=== PATIENT | male | born 1940 | race Caucasian/White ===

== ENCOUNTER 2017-04-21 20:54 | Inpatient (IN) | payer OTHER, MEDICARE ==
[~2017-04-21] VITALS: Ht 172.7 cm; Wt 80.0 kg
[~2017-04-21 20:54] MED LIST: APIX5TAB PO; CHOL1CAP6 PO; ESTE500T4 PO; FOLI1 PO; LACTATED RINGER'S 1000 ML INJ 1,000 ML IV ONE; LORTA5 PO; METO100T9 PO; PHENYLEPH/NS 1000 MCG/10 ML SYR IV ONE; PROPOFOL 200 MG/20 ML AMP IV ONE; TAB-TAB PO; Z.0.COMMODE-3:1; Z.0.WALKERFRONT; [UNRECOGNIZED DRUG - CODE] PO; ceFAZolin INJ 1,000 MG VIAL IV ONE; ePHEDrine/NS 25 MG/5 ML SYR IV ONE
[2017-04-21] MEDS ORDERED: SODIUM CHLORIDE 0.9% FLUSH 10 ML FLUSH IV FLUSH PRN ×2 (21:15→22:15)
[2017-04-21 21:23] LABS: AUTOMATED NEUTROPHIL # 15.4 TH/MM3 (1.8-7.7); BASOPHIL % 0.2 % (0.0-2.0); HEMO FLAGS DIFF FINAL; LYMPH % 4.4 % (9.0-44.0); LYMPHOCYTE # 0.7 TH/MM3 (1.0-4.8); MEAN CELL VOLUME 98.1 FL (80.0-100.0); MEAN CORPUSCULAR HEMOGLOBIN 33.1 PG (27.0-34.0); MEAN CORPUSCULAR HGB CONC 33.7 % (32.0-36.0); MONO % 2.3 % (0.0-8.0); NEUT % 93.1 % (16.0-70.0); PLATELET COUNT 204 TH/MM3 (150-450); RED BLOOD COUNT 4.38 MIL/MM3 (4.50-5.90); RED CELL DISTRIBUTION WIDTH 13.4 % (11.6-17.2); WHITE BLOOD COUNT 16.6 TH/MM3 (4.0-11.0)
[2017-04-21 21:30] VITALS: BP 197/89; PULSE 89; RESP 20; O2SAT 97
[2017-04-21 21:31] VITALS: BP 198/89; PULSE 92; RESP 24; TEMP 97.7; O2SAT 98
[2017-04-21 21:33] LABS: APTT (PATIENT) 23.8 SEC (24.3-30.1); PROTHROMBIN TIME - PATIENT 10.8 SEC (9.8-11.6)
[2017-04-21] MEDS ORDERED: KETAMINE HCL 500 MG/5 ML VIAL ONE (21:38)
[2017-04-21 21:42] VITALS: O2SAT 98
--- NOTE | 2017-04-21 21:42 | PD ---
HPI Chief Complaint: Bleeding Time Seen by Provider: 21:01 Travel History International Travel<30 days: No Contact w/Intl Traveler<30days: No Traveled to known affect area: No History of Present Illness HPI 76-year-old male who had a facelift procedure today by Dr. Becerra, brought in by ambulance from home for evaluation of neck pain, neck swelling, and difficulty breathing. The patient reports he feels as though there is something in his throat. States it is hard to breathe because of this. He denies being on any antiplatelets or anticoagulants. PFSH Past Medical History Cancer: Yes (PROSTATE, PRE SKIN CANCERS) Cardiovascular Problems: Yes (A FIB) Endocrine: No Gastrointestinal Disorders: No Genitourinary: Yes (WEARS PAD DURING DAY FOR SLIGHT INCONTINENCE) Hepatitis: No Hiatal Hernia: No Hypertension: Yes Immune Disorder: No Medical other: Yes (THORACIC AORTIC ANEURYSM ) Musculoskeletal: Yes (RIGHT HIP, RIGHT SHOULDER DISCOMFORT, MINIMAL LEFT SHOULDER DISCOMFORT) Neurologic: No Psychiatric: No Reproductive: No Respiratory: No Tetanus Vaccination: > 5 Years Influenza Vaccination: No Past Surgical History Abdominal Surgery: Yes (DOUBLE ABDOMINAL HERNIA REPAIR, LAPROSCOPIC SURGERY FOR BOWEL OBSTRUCTION) AICD: No Body Medical Devices: NONE Cardiac Surgery: No Ear Surgery: No Endocrine Surgery: No Eye Surgery: No Genitourinary Surgery: Yes (PROSTATE REMOVED, URETHRAL DILITATION) Joint Replacement: No Neurologic Surgery: No Oral Surgery: No Pacemaker: No Thoracic Surgery: No Other Surgery: Yes Social History Alcohol Use: Yes (i per night) Tobacco Use: No Substance Use: No Allergies-Medications (Allergen,Severity, Reaction): Coded Allergies: meperidine (Verified Allergy, Intermediate, 04/21/17) Sulfa (Sulfonamide Antibiotics) (Unverified Adverse Reaction, Severe, NAUSEA AND VOMITING, 03/22/17) Reported Meds & Prescriptions Reported Meds & Active Scripts Active [place] 5-325 mg (Hydrocodone-Acetaminophen 5-325 mg) 1 Tab 1-2 Tab PO Q4H PRN Walker Front Wheel (Walkerfront) Device 1 Unit Commode-3:1 Device 1 Unit Reported Metoprolol Succinate ER 100 mg (Metoprolol Succinate) 100 Mg Tab 100 Mg PO HS L-Arginine (Arginine) 1,000 Mg Tab 1,000 Mg PO DAILY Suzette-C (Bioflavonoid Products) 500 Mg Tab 1 Tab PO DAILY Multivitamin (Multivitamins) 1 Tab Tab 1 Tab PO DAILY Folate 1 Mg Tab (Folic Acid) 1 Mg Tab 1,600 Mcg PO DAILY Vitamin D-3 (Cholecalciferol) 1,000 Unit Tab 1,000 Unit PO DAILY Eliquis (Apixaban) 5 Mg Tab 5 Mg PO BID Review of Systems Except as stated in HPI: all other systems reviewed are Neg Physical Exam Narrative GENERAL: Well-developed, well-nourished, mild distress secondary to pain, discomfort, and dyspnea. SKIN: Focused skin assessment warm/dry. HEAD: Diffuse facial swelling and neck swelling. EYES: Pupils equal and round. No scleral icterus. No injection or drainage. ENT: Mucous membranes pink and moist. Slight stridor on exam with hoarseness of voice. NECK: Diffuse neck swelling with ecchymosis and firmness. Submandibular [place] as well as posterior radicular vin in place with slight bleeding at incision sites. There are 2 REJI drains, each behind the patient's ear bilaterally. The right REJI drain has 70 cc of blood. The left REJI drain has 20 cc of blood. CARDIOVASCULAR: Regular rate and rhythm. RESPIRATORY: No accessory muscle use. Clear to auscultation. Breath sounds equal bilaterally. GASTROINTESTINAL: Abdomen soft, non-tender, nondistended. MUSCULOSKELETAL: No obvious deformities. No clubbing. No cyanosis. No edema. NEUROLOGICAL: Awake and alert. No obvious cranial nerve deficits. Motor grossly within normal limits. Normal speech. PSYCHIATRIC: Appropriate mood and affect; insight and judgment normal. Data Data Last Documented VS Vital Signs Date Time Temp Pulse Resp B/P (MAP) Pulse Ox O2 Delivery O2 Flow Rate FiO2 04/21/17 21:30 89 20 197/89 (125) 97 Nasal Cannula 2.00 Orders Orders Complete Blood Count With Diff (04/21/17 21:07) Comprehensive Metabolic Panel (04/21/17 21:07) Prothrombin Time / Inr (Pt) (04/21/17 21:07) Act Partial Throm Time (Ptt) (04/21/17 21:07) Iv Access Insert/Monitor (04/21/17 21:07) Ecg Monitoring (04/21/17 21:07) Oximetry (04/21/17 21:07) Sodium Chloride 0.9% Flush (Ns Flush) (04/21/17 21:15) Admit Order (Ed Use Only) (04/21/17 21:31) Dexamethasone Inj (Decadron Inj) (04/21/17 21:45) Labs Laboratory Tests Test 04/21/17 21:10 White Blood Count 16.6 TH/MM3 Red Blood Count 4.38 MIL/MM3 Hemoglobin 14.5 GM/DL Hematocrit 43.0 % Mean Corpuscular Volume 98.1 FL Mean Corpuscular Hemoglobin 33.1 PG Mean Corpuscular Hemoglobin Concent 33.7 % Red Cell Distribution Width 13.4 % Platelet Count 204 TH/MM3 Mean Platelet Volume 8.5 FL Neutrophils (%) (Auto) 93.1 % Lymphocytes (%) (Auto) 4.4 % Monocytes (%) (Auto) 2.3 % Eosinophils (%) (Auto) 0.0 % Basophils (%) (Auto) 0.2 % Neutrophils # (Auto) 15.4 TH/MM3 Lymphocytes # (Auto) 0.7 TH/MM3 Monocytes # (Auto) 0.4 TH/MM3 Eosinophils # (Auto) 0.0 TH/MM3 Basophils # (Auto) 0.0 TH/MM3 CBC Comment DIFF FINAL Differential Comment Prothrombin Time 10.8 SEC Prothromb Time International Ratio 1.0 RATIO Activated Partial Thromboplast Time 23.8 SEC MDM Medical Decision Making Medical Screen Exam Complete: Yes Emergency Medical Condition: Yes Differential Diagnosis Postoperative hematoma, airway compromise Narrative Course Shortly after the patient arrived to the emergency department I was able to get in touch with the patient's surgeon Dr. Becerra who recommends that I remove the vin and subcutaneous sutures behind each of the patient's ears to help drain the hematoma. He is on his way to the hospital to take the patient back to the operating room to evacuate the large neck hematoma. Bilateral posterior radicular Vin were removed, and subcutaneous sutures were removed on the right side. Yankauer drain to suction was used to drain about 100 cc of blood. There was mild softening to the neck hematoma after this was performed. Senior Software Developer Dr. Domingo made aware of the patient has the patient will be admitted to the ICU after he is taken to the OR. Critical Care Narrative Aggregate critical care time was 35 minutes. Time to perform other separately billable procedures was not included in the critical care time. My time did not include minutes spent treating any other patients simultaneously or on activities that did not directly contribute to the patient's treatment. The services I provided to this patient were to treat and/or prevent clinically significant deterioration that could result in: , permanent disability, acute respiratory failure I provided critical care services requiring my management, as noted below: Chart data review, documentation time, medication orders and management, vital sign assessments/reviewing monitor data, ordering and reviewing lab tests, ordering and interpreting/reviewing x-rays and diagnostic studies, care of the patient and discussion of the patient with the admitting physicians. Diagnosis Primary Impression: Postoperative hematoma of skin following dermatologic procedure Admitting Information Admitting Physician Requests: Admit Kyle Castaneda MD Apr 21, 2017 21:42
[2017-04-21] MEDS ORDERED: DEXAMETHASONE SOD PHOS 20 MG/5 ML VIAL IV PUSH ONE (21:45)
[2017-04-21] MEDS ORDERED: BUPIVACAINE/EPINEPHRINE 0.5% 50 ML VIAL ONE (21:53)
[2017-04-21 22:02] LABS: ANION GAP 9 MEQ/L (5-15); AST (GOT) 25 U/L (15-37); BICARBONATE 22.9 MEQ/L (21.0-32.0); BLOOD UREA NITROGEN 22 MG/DL (7-18); CHLORIDE 108 MEQ/L (98-107); GLOMERULAR FILTRATION RATE 47 ML/MIN (>89); POTASSIUM 4.1 MEQ/L (3.5-5.1); SODIUM (NA) 140 MEQ/L (136-145)
[2017-04-21 22:03] LABS: ALT (GPT) 37 U/L (12-78)
[2017-04-21 22:05] LABS: ALKALINE PHOSPHATASE 78 U/L (45-117); TOTAL BILIRUBIN ADULT 0.5 MG/DL (0.2-1.0)
[2017-04-21] MEDS ORDERED: BISACODYL 10 MG SUPP RECTAL PRN (22:15)
[2017-04-21] MEDS ORDERED: PROPOFOL 1000 MG/100 ML INJ 100 ML IV PRN (22:15)
[2017-04-21] MEDS ORDERED: MAGNESIUM HYDROXIDE SUSP 30 ML CUP PO PRN (22:15)
[2017-04-21] MEDS ORDERED: MISCELLANEOUS NURSING INFORMATION XX SCH (22:15)
[2017-04-21] MEDS ORDERED: SENNOSIDES 8.6 MG TAB PO PRN (22:15)
[2017-04-21] MEDS ORDERED: CHLORHEXIDINE GLUCONATE 2 % 1 PACK (2 CLOTHS) TOP PRN (22:15)
[2017-04-21] MEDS ORDERED: ONDANSETRON HCL 4 MG/2 ML VIAL IV PUSH PRN (22:15)
[2017-04-21] MEDS ORDERED: RESP: ALBUTEROL 2.5 MG/3 ML NEB (PRN) INH (22:15)
[2017-04-21] MEDS ORDERED: LACTULOSE SYRUP 20 GM/30 ML CUP PO PRN (22:15)
[2017-04-21] MEDS ORDERED: HYDR25TA5 PO (22:25)
[2017-04-21] MEDS ORDERED: ALPR.25 PO (22:25)
[2017-04-21] MEDS ORDERED: ZOVI400T PO (22:25)
[2017-04-21] MEDS ORDERED: HYDR1SOL6 PO (22:25)
[2017-04-21] MEDS ORDERED: CEPH-460 PO (22:25)
[2017-04-21] MEDS ORDERED: ZOFR4TAB PO (22:25)
--- NOTE | 2017-04-21 22:26 | HHI.HP ---
[facility] Service Critical Care Medicine Primary Care Physician Unknown Admission Diagnosis postoperative hematoma Diagnosis: (1) Postoperative hematoma of skin following dermatologic procedure Diagnosis: Principal (2) Hypertension Diagnosis: Principal (3) Anticoagulant long-term use Diagnosis: Principal (4) Prostate cancer Diagnosis: Principal (5) Thoracic aortic aneurysm Diagnosis: Secondary (6) Osteoarthritis Diagnosis: Principal (7) Leukocytosis Diagnosis: Principal (8) Atrial fibrillation Diagnosis: Principal Chief Complaint: "I can't breathe". Swelling post facelift Travel History International Travel<30 Days: No Contact w/Intl Traveler <30 Da: No Traveled to Known Affected Are: No History of Present Illness This is a 76-year-old male. Date of admission 04/21/2017. Past medical history includes heart appearing, atrial fibrillation, osteoarthritis, thoracic aneurysm, prostate cancer. He is on chronic Apixabam. He presents to [facility] today after receiving a facelift with Dr. Barroso.. He is noticing increasing difficulty breathing, complaining of neck pain and diffuse facial swelling. His right REJI at 70 cc sanguinous output. Left REJI 20 cc sanguinous output. Plastics was notified. Recommend removing his zabrina infection blood to relieve pressure. This was done on the right side. Patient is going back to the OR for definitive therapy by plastics. He will return to [facility] intubated. He is somewhat hypertensive in the emergency department but denies chest pain abdominal pain. Review of Systems Constitutional: DENIES: Weight loss, Chills, Dizziness Endocrine: DENIES: Heat/cold intolerance Eyes: DENIES: Blurred vision, Double Vision Ears, nose, mouth, throat: COMPLAINS OF: Tinnitus, Hearing loss Respiratory: COMPLAINS OF: Cough, Shortness of breath, DENIES: Apneas Cardiovascular: DENIES: Chest pain Gastrointestinal: DENIES: Abdominal pain Genitourinary: COMPLAINS OF: Urinary frequency, Nocturia Musculoskeletal: COMPLAINS OF: Joint pain, DENIES: Back pain Integumentary: DENIES: Abnormal pigmentation Hematologic/lymphatic: COMPLAINS OF: Bruising Immunologic/allergic: DENIES: Eczema Neurologic: DENIES: Headache Psychiatric: COMPLAINS OF: Anxiety, DENIES: Confusion, Depression Past Family Social History Allergies: Coded Allergies: meperidine (Verified Allergy, Intermediate, 04/21/17) Sulfa (Sulfonamide Antibiotics) (Unverified Adverse Reaction, Severe, NAUSEA AND VOMITING, 03/22/17) Past Medical History [place] Atrial fibrillation/chronic Osteoarthritis Thoracic aortic aneurysm History of prostate cancer Chronic apixaban use Past Surgical History Prostatectomy with urethral dilatation Right total hip arthroplasty Open laparotomy for bowel obstruction Complex abdominal hernia repair 2 Reported Medications [place] 5-325 mg (Hydrocodone-Acetaminophen 5-325 mg) 1 Tab 1-2 Tab PO Q4H PRN Walker Front Wheel (Walkerfront) Device 1 Unit Commode-3:1 Device 1 Unit Reported Metoprolol Succinate ER 100 mg (Metoprolol Succinate) 100 Mg Tab 100 Mg PO HS L-Arginine (Arginine) 1,000 Mg Tab 1,000 Mg PO DAILY Suzette-C (Bioflavonoid Products) 500 Mg Tab 1 Tab PO DAILY Multivitamin (Multivitamins) 1 Tab Tab 1 Tab PO DAILY Folate 1 Mg Tab (Folic Acid) 1 Mg Tab 1,600 Mcg PO DAILY Vitamin D-3 (Cholecalciferol) 1,000 Unit Tab 1,000 Unit PO DAILY Eliquis (Apixaban) 5 Mg Tab 5 Mg PO BID Active Ordered Medications Reviewed in EMR Family History Mother with diabetes. Social History 1 alcohol drink daily. Denies tobacco or IV drug use Physical Exam Vital Signs Vital Signs Date Time Temp Pulse Resp B/P (MAP) Pulse Ox O2 Delivery O2 Flow Rate FiO2 04/21/17 21:42 98 2.00 04/21/17 21:31 97.7 92 24 198/89 (125) 98 04/21/17 21:30 89 20 197/89 (125) 97 Nasal Cannula 2.00 04/21/17 21:09 94 20 97 Nasal Cannula Physical Exam GENERAL: 76-year-old male, in mild respiratory distress SKIN: Warm and dry. HEAD: Atraumatic. Normocephalic. EYES: Pupils equal and round about 2 mm bilaterally and reactive. Positive periorbital swelling/edema No scleral icterus. No injection or drainage. ENT: Please with this diffuse swelling/ecchymoses throughout. Right Submandibular/posterior auricular zabrina have been opened. [address] initially. Right-sided has been removed. Left REJI in place with oozing from left submandibular/posterior auricular zabrina. Large anterior neck hematoma noted. NECK: Trachea midline. No JVD. Faint stridor appreciated CARDIOVASCULAR: IRR. S1, S2 no S4. Without murmur RESPIRATORY: Clear to auscultation. Breath sounds equal bilaterally. GASTROINTESTINAL: Abdomen soft, non-tender, nondistended. Hypoactive bowel sounds appreciated. Prior abdominal scarring noted MUSCULOSKELETAL: Extremities without clubbing, cyanosis, or edema. No obvious deformities. NEUROLOGICAL: Awake and alert. No obvious cranial nerve deficits. Motor grossly within normal limits. Five out of 5 muscle strength in the arms and legs. Normal speech. Laboratory Laboratory Tests Test 04/21/17 21:10 White Blood Count 16.6 Red Blood Count 4.38 Hemoglobin 14.5 Hematocrit 43.0 Mean Corpuscular Volume 98.1 Mean Corpuscular Hemoglobin 33.1 Mean Corpuscular Hemoglobin Concent 33.7 Red Cell Distribution Width 13.4 Platelet Count 204 Mean Platelet Volume 8.5 Neutrophils (%) (Auto) 93.1 Lymphocytes (%) (Auto) 4.4 Monocytes (%) (Auto) 2.3 Eosinophils (%) (Auto) 0.0 Basophils (%) (Auto) 0.2 Neutrophils # (Auto) 15.4 Lymphocytes # (Auto) 0.7 Monocytes # (Auto) 0.4 Eosinophils # (Auto) 0.0 Basophils # (Auto) 0.0 CBC Comment DIFF FINAL Differential Comment Prothrombin Time 10.8 Prothromb Time International Ratio 1.0 Activated Partial Thromboplast Time 23.8 Blood Urea Nitrogen 22 Creatinine 1.45 Random Glucose 190 Total Protein 6.8 Albumin 3.7 Calcium Level 8.1 Alkaline Phosphatase 78 Aspartate Amino Transf (AST/SGOT) 25 Alanine Aminotransferase (ALT/SGPT) 37 Total Bilirubin 0.5 Sodium Level 140 Potassium Level 4.1 Chloride Level 108 Carbon Dioxide Level 22.9 Anion Gap 9 Estimat Glomerular Filtration Rate 47 Result Diagram: 04/21/172109 Caprini VTE Risk Assessment Caprini VTE Risk Assessment: Mod/High Risk (score >= 2) Caprini Risk Assessment Model Point Value = 1 Point Value = 2 Point Value = 3 Point Value = 5 Age 41-60 Minor surgery BMI > 25 kg/m2 Swollen legs Varicose veins or History of unexplained or recurrent spontaneous Oral contraceptives or hormone replacement Sepsis (< 1 month) Serious lung disease, including pneumonia (< 1 month) Abnormal pulmonary function Acute myocardial infarction Congestive heart failure (< 1 month) History of inflammatory bowel disease Medical patient at bed rest Age 61-74 Arthroscopic surgery Major open surgery (> 45 min) Laparoscopic surgery (> 45 min) Malignancy Confined to bed (> 72 hours) Immobilizing plaster cast Central venous access Age >= 75 History of VTE Family history of VTE Factor V Leiden Prothrombin [id number] Lupus anticoagulant Anticardiolipin antibodies Elevated serum homocysteine Heparin-induced thrombocytopenia Other congenital or acquired thrombophilia Stroke (< 1 month) Elective arthroplasty Hip, pelvis, or leg fracture Acute spinal cord injury (< 1 month) Prophylaxis Regimen Total Risk Factor Score Risk Level Prophylaxis Regimen 0-1 Low Early ambulation 2 Moderate Order ONE of the following: *Sequential Compression Device (SCD) *Heparin 5000 units SQ BID 3-4 Higher Order ONE of the following medications: *Heparin 5000 units SQ TID *Enoxaparin/Lovenox 40 mg SQ daily (WT < 150 kg, CrCl > 30 mL/min) *Enoxaparin/Lovenox 30 mg SQ daily (WT < 150 kg, CrCl > 10-29 mL/min) *Enoxaparin/Lovenox 30 mg SQ BID (WT < 150 kg, CrCl > 30 mL/min) AND/OR *Sequential Compression Device (SCD) 5 or more Highest Order ONE of the following medications: *Heparin 5000 units SQ TID (Preferred with Epidurals) *Enoxaparin/Lovenox 40 mg SQ daily (WT < 150 kg, CrCl > 30 mL/min) *Enoxaparin/Lovenox 30 mg SQ daily (WT < 150 kg, CrCl > 10-29 mL/min) *Enoxaparin/Lovenox 30 mg SQ BID (WT < 150 kg, CrCl > 30 mL/min) AND *Sequential Compression Device (SCD) Assessment and Plan Assessment and Plan Neuro/Psych: Hard of hearing/tinnitus We will place on propofol drip to maintain sedation while intubated Goal of RASS -3 in order to maintain airway Daily sedation vacation when okay with plastics CV: Chronic atrial fibrillation/rate control Hypertension History of thoracic aortic aneurysm Home medication is metoprolol succinate 100 mg by mouth daily Postoperative crystalloid fluids per plastic surgery Resp: Postoperative respiratory failure [facility] 16/550/08/12/50 Ventilator bundle Albuterol/ipratropium aerosols every 4 hours with albuterol aerosols every 2 hours. Dyspnea Will keep intubated lastcase. Trial since okay with plastic surgery GI: Patient is currently nothing by mouth IV famotidine for GI prophylaxis Docusate sodium/senna for bowel regimen : History of prostate cancer status post prostatectomy/urethral dilatation Endo: Sliding-scale insulin to maintain euglycemia/low regimen every 6 hours with Novulin R Renal: Elevated creatinine 1.45. Unknown baseline. Recheck BMP in a.m. Avoid nephrotoxic drugs Heme: Leukocytosis Chronic Apixaban use Avoid anticoagulant use This is likely stress related. Recheck CBC in AM. ID: Postoperative antibiotics per plastics MSK: Postoperative day #[address] Barroso Neck hematoma Osteoarthritis To OR today for evacuation of hematoma FEN: Replacing electrolytes as clinically indicated Access - Utilize peripheral IV. Central line if indicated Prophylaxis - GI - famotidine - DVT - SCDs/holding pharmacological prophylaxis in light of hematoma Critical care time 30 minutes Addendum. Received PCC secondary to Eliquis use. Patient was actively oozing postoperatively thus decision was made to provide. Code Status Full code focal Discussed Condition With Patient. Dr. Johnson. Dr. Castaneda. Care plan discussed and all questions answered. Problem Qualifiers (1) Hypertension: Qualified Codes: I10 - Essential (primary) hypertension (2) Thoracic aortic aneurysm: Qualified Codes: I71.2 - Thoracic aortic aneurysm, without rupture (3) Osteoarthritis: Qualified Codes: M19.90 - Unspecified osteoarthritis, unspecified site (4) Leukocytosis: Qualified Codes: D72.829 - Elevated white blood cell count, unspecified (5) Atrial fibrillation: Qualified Codes: I48.2 - Chronic atrial fibrillation Isaac Rao MD Apr 21, 2017 22:26
[2017-04-21] MEDS ORDERED: ARTIFICIAL TEARS OPTH OINT 3.5 APPLIC/3.5 GM TUBO ONE (22:33)
[2017-04-21] MEDS ORDERED: GLUCAGON 1 MG/ML VIAL OTHER PRN (22:45)
[2017-04-21] MEDS ORDERED: DEXTROSE 50% IN WATER 50 ML VIAL(D50) IV PRN (22:45)
[2017-04-21] MEDS ORDERED: SODIUM CHLOR 0.9% 1000 ML INJ 1,000 ML IV SCH (23:00)
[2017-04-21 23:48] VITALS: O2SAT 34
[2017-04-22] VITALS (8 sets, daily range): BP systolic 100–134; BP diastolic 50–61; PULSE 62–82; RESP 11–19; TEMP 97.7–98.8; O2SAT 96–100
[2017-04-22] MEDS ORDERED: MIDAZOLAM HCL 5 MG/ML VIAL (1 ML) ONE (01:13)
[2017-04-22] MEDS: methylPREDNISolone SOD SUCC 125 MG/2 ML VIAL IV SCH ×2 (03:54→10:20)
[2017-04-22] MEDS: DEXT 5%-NACL 0.45% 1000 ML INJ 1,000 ML IV SCH ×2 (03:57)
[2017-04-22] MEDS: ceFAZolin 1,000 MG/NS 100 ML IV SCH ×4 (03:57→13:36)
[2017-04-22] MEDS ORDERED: CHLORHEXIDINE GLUCONATE 2 % 1 PACK (2 CLOTHS) TOP SCH (04:00)
[2017-04-22] MEDS ORDERED: fentaNYL 2,500 MCG/NS 250 ML IV PRN (04:45)
[2017-04-22] MEDS ORDERED: MIDAZOLAM 100 MG/NS 100 ML DRIP Premix IV PRN (05:00)
[2017-04-22] MEDS ORDERED: SODIUM CHLOR 0.9% 1000 ML INJ 1,000 ML IV SCH (05:00)
[2017-04-22] MEDS ORDERED: PROTHROMBIN COMPLEX IV ONE (06:30)
[2017-04-22 06:35] LABS: AUTOMATED NEUTROPHIL # 7.1 TH/MM3 (1.8-7.7); BASOPHIL % 0.1 % (0.0-2.0); HEMO FLAGS DIFF FINAL; LYMPH % 6.5 % (9.0-44.0); LYMPHOCYTE # 0.5 TH/MM3 (1.0-4.8); MEAN CELL VOLUME 99.2 FL (80.0-100.0); MEAN CORPUSCULAR HEMOGLOBIN 33.2 PG (27.0-34.0); MEAN CORPUSCULAR HGB CONC 33.5 % (32.0-36.0); MONO % 1.9 % (0.0-8.0); NEUT % 91.5 % (16.0-70.0); PLATELET COUNT 162 TH/MM3 (150-450); RED BLOOD COUNT 3.43 MIL/MM3 (4.50-5.90); RED CELL DISTRIBUTION WIDTH 13.2 % (11.6-17.2); WHITE BLOOD COUNT 7.7 TH/MM3 (4.0-11.0)
[2017-04-22] MEDS: INSULIN NovoLIN REGULAR SUPPLEMENTAL SCALE SQ SCH ×4 (06:35→18:00)
[2017-04-22 06:51] LABS: INTERNATIONAL NORMALIZED RATIO 0.9 RATIO; PROTHROMBIN TIME - PATIENT 10.4 SEC (9.8-11.6)
[2017-04-22 06:54] LABS: CALCIUM-PROTEIN CORRECTED 8.3 MG/DL (8.5-10.1); MAGNESIUM 1.9 MG/DL (1.5-2.5); POTASSIUM 4.6 MEQ/L (3.5-5.1); TOTAL BILIRUBIN ADULT 0.4 MG/DL (0.2-1.0)
[2017-04-22 06:55] LABS: APTT (PATIENT) 21.1 SEC (24.3-30.1)
[2017-04-22] MEDS ORDERED: CHLORHEXIDINE 0.12% (ORAL KIT) 15 ML CUP MT SCH (08:00)
--- NOTE | 2017-04-22 08:01 | HHI.PR ---
Subjective Remarks POD 1 s/p s/p face lift, upper bleph. s/p evacuation of hematoma neck pt seen and examined, intubated sedated nurses/ at bedside Objective Vital Signs Date Time Temp Pulse Resp B/P (MAP) Pulse Ox O2 Delivery O2 Flow Rate FiO2 04/22/17 04:43 98 40 04/22/17 04:00 98.8 16 111/50 (70) 100 04/22/17 00:00 80 04/22/17 00:00 97.7 64 16 100/50 (67) 100 04/22/17 00:00 64 04/21/17 23:48 34 100 04/21/17 21:42 98 2.00 04/21/17 21:31 97.7 92 24 198/89 (125) 98 04/21/17 21:30 89 20 197/89 (125) 97 Nasal Cannula 2.00 04/21/17 21:09 94 20 97 Nasal Cannula I/O 04/21/17 04/21/17 04/21/17 04/22/17 04/22/17 04/22/17 07:00 15:00 23:00 07:00 15:00 23:00 Intake Total 715 ml Output Total 525 ml Balance 190 ml Intake IV Total 715 ml Output Urine Total 400 ml Drainage Total 125 ml Result Diagram: 04/22/1751904/22/17519 Objective Remarks pressure dressing in place, clean dry no active heme noted normal post op edema pupils round equal/reactive sluggish - sedation wound margins well approximated, sutures intact susanna drains hold suction - right 75cc/ left 50cc overnight serous/sanguis et tube oral - stable Assessment and Plan Assessment and Plan POD 1 s/p s/p face lift, upper bleph ok to wean to extubate from oms standpoint ok to d/c to home for oms standpoint f/up tomorrow [facility] [phone] pt has abx/pain meds at home no strenuous activity/exercises /no bending over keep face/neck dressing in place, do not remove drains, keep head elevated, HOB 30 deg. clear liquid diet at first, advance to full liquid diet as tolerated follow post op instructions as given. Amari Ferrara DMD Apr 22, 2017 08:01
[2017-04-22] MEDS: ARTIFICIAL TEARS OPTH SOLN 15 ML BTL EACH EYE SCH ×3 (09:00→18:00)
[2017-04-22] MEDS ORDERED: DOCUSATE SODIUM 50 MG/SENNA 8.6 MG TAB PO SCH (09:00)
[2017-04-22] MEDS ORDERED: FAMOTIDINE 20 MG/2 ML VIAL IV PUSH SCH (09:00)
[2017-04-22] MEDS ORDERED: SODIUM CHLORIDE 0.9% FLUSH 10 ML FLUSH IV FLUSH SCH (09:00)
[2017-04-22] MEDS ORDERED: MIDAZOLAM HCL 5 MG/ML VIAL (1 ML) IV ONE (09:15)
[2017-04-22] MEDS ORDERED: ROCURONIUM INJ 50 MG/5 ML VIAL IV ONE (09:15)
[2017-04-22] MEDS ORDERED: DO NOT ADM ANY ANTICOAGULANT DRUGS PRN (09:30)
[2017-04-22] MEDS ORDERED: RESP: RACEPINEPHRINE 2.25% 0.5 ML NEB ONE (10:01)
--- NOTE | 2017-04-22 14:12 | HHI.PR ---
Subjective Remarks POD 1 s/p s/p face lift, upper bleph. s/p evacuation of hematoma neck pt seen and examined, this afternoon, extubated, following commands, aao tolerating po,juice /jello, no complaints, denies sob/difficulty swallowing/ difficulty breathing nurses/family at bedside Objective Vital Signs Date Time Temp Pulse Resp B/P (MAP) Pulse Ox O2 Delivery O2 Flow Rate FiO2 04/22/17 09:45 96 Nasal Cannula 2 04/22/17 08:07 100 35 04/22/17 07:00 100 Mechanical Ventilator 40 04/22/17 04:43 98 40 04/22/17 04:00 98.8 16 111/50 (70) 100 04/22/17 00:00 80 04/22/17 00:00 97.7 64 16 100/50 (67) 100 04/22/17 00:00 64 04/21/17 23:48 34 100 04/21/17 21:42 98 2.00 04/21/17 21:31 97.7 92 24 198/89 (125) 98 04/21/17 21:30 89 20 197/89 (125) 97 Nasal Cannula 2.00 04/21/17 21:09 94 20 97 Nasal Cannula I/O 04/21/17 04/21/17 04/21/17 04/22/17 04/22/17 04/22/17 07:00 15:00 23:00 07:00 15:00 23:00 Intake Total 2015 ml Output Total 725 ml Balance 1290 ml Intake IV Total 715 ml Other 1300 ml Output Urine Total 400 ml Drainage Total 125 ml Estimated Blood Loss 200 ml Result Diagram: 04/22/17 0520 04/22/17 0520 Objective Remarks pressure dressing in place, clean dry no active heme noted normal post op edema no neck edema, neck soft, no tenderness pupils round equal/reactive sluggish - sedation wound margins well approximated, sutures intact susanna drains hold suction - right 30cc/ left 30cc serous/sanguis since 6 am today Assessment and Plan Assessment and Plan POD 1 s/p s/p face lift, upper bleph ok to d/c to home for oms standpoint f/up tomorrow morning 8am [place] [facility] [phone] pt has abx/advised to stop Hydrocodone, rx for Percocet 5/325 given no strenuous activity/exercises /no bending over keep face/neck dressing in place, do not remove drains, keep head elevated, HOB 30 deg. clear liquid diet at first, advance to full liquid diet as tolerated follow post op instructions as given. Amari Ferrara DMD Apr 22, 2017 14:12
[2017-04-22] MEDS: MORPHINE SULFATE 4 MG/ML INJ IV PRN ×2 (14:44→17:44)
--- NOTE | 2017-04-22 19:16 | HHI.DS ---
Discharge Summary Admission Date Apr 21, 2017 at 21:33 Discharge Date: Apr 22, 2017 Admitting Diagnosis postoperative hematoma (1) Postoperative hematoma of skin following dermatologic procedure ICD Code: L76.31 - Postprocedural hematoma of skin and subcutaneous tissue following a dermatologic procedure Diagnosis: Principal Status: Acute (2) Hypertension ICD Code: I10 - Essential (primary) hypertension Diagnosis: Principal (3) Anticoagulant long-term use ICD Code: Z79.01 - terminal press operator (current) use of anticoagulants Diagnosis: Principal (4) Prostate cancer ICD Code: C61 - Malignant neoplasm of prostate Diagnosis: Principal (5) Thoracic aortic aneurysm ICD Code: I71.2 - Thoracic aortic aneurysm, without rupture Diagnosis: Secondary (6) Osteoarthritis ICD Code: M19.90 - Unspecified osteoarthritis, unspecified site Diagnosis: Principal (7) Leukocytosis ICD Code: D72.829 - Elevated white blood cell count, unspecified Diagnosis: Principal (8) Atrial fibrillation ICD Code: I48.91 - Unspecified atrial fibrillation Diagnosis: Principal Brief History This is a 76-year-old male. Date of admission 04/21/2017. Past medical history includes heart appearing, atrial fibrillation, osteoarthritis, thoracic aneurysm, prostate cancer. He is on chronic Apixabam. He presents to [facility] today after receiving a facelift with Dr. Barroso.. He is noticing increasing difficulty breathing, complaining of neck pain and diffuse facial swelling. His right REJI at 70 cc sanguinous output. Left REJI 20 cc sanguinous output. Plastics was notified. Recommend removing his azbrina infection blood to relieve pressure. This was done on the right side. Patient is going back to the OR for definitive therapy by plastics. He will return to [facility] intubated. He is somewhat hypertensive in the emergency department but denies chest pain abdominal pain. CBC/BMP: 04/22/17 0520 04/22/17 0520 Significant Findings Laboratory Tests Test 04/21/17 21:10 04/22/17 00:18 04/22/17 05:20 White Blood Count 16.6 TH/MM3 (4.0-11.0) Red Blood Count 4.38 MIL/MM3 (4.50-5.90) 3.43 MIL/MM3 (4.50-5.90) Neutrophils (%) (Auto) 93.1 % (16.0-70.0) 91.5 % (16.0-70.0) Lymphocytes (%) (Auto) 4.4 % (9.0-44.0) 6.5 % (9.0-44.0) Neutrophils # (Auto) 15.4 TH/MM3 (1.8-7.7) Lymphocytes # (Auto) 0.7 TH/MM3 (1.0-4.8) 0.5 TH/MM3 (1.0-4.8) Activated Partial Thromboplast Time 23.8 SEC (24.3-30.1) 21.1 SEC (24.3-30.1) Blood Urea Nitrogen 22 MG/DL (7-18) 19 MG/DL (7-18) Creatinine 1.45 MG/DL (0.60-1.30) 1.35 MG/DL (0.60-1.30) Random Glucose 190 MG/DL (74-106) 176 MG/DL (74-106) Calcium Level 8.1 MG/DL (8.5-10.1) 7.4 MG/DL (8.5-10.1) Chloride Level 108 MEQ/L (98-107) 108 MEQ/L (98-107) Estimat Glomerular Filtration Rate 47 ML/MIN (>89) 51 ML/MIN (>89) Hemoglobin 11.4 GM/DL (13.0-17.0) Hematocrit 34.0 % (39.0-51.0) Total Protein 5.4 GM/DL (6.4-8.2) Albumin 2.7 GM/DL (3.4-5.0) Protein Corrected Calcium 8.3 MG/DL (8.5-10.1) PE at Discharge Alert, conversant Lungs clear. Airway widely patent. No stridor or obstruction Comfortable respiratory pattern Extremities: Tanned, warm, well perfused. Head: General facial edema. Lips, mouth normal. Hospital Course Operative drainage of facial/neck hematoma. Extubated early next morning. Swallow evaluation normal. Pt Condition on Discharge: Good Discharge Disposition: Discharge Home Discharge Instructions DIET: Follow Instructions for: As Tolerated, No Restrictions Speech Therapy-Diet Recommends: Regular Activities you can perform: Regular-No Restrictions Vinay Elizabeth MD Apr 22, 2017 19:16
--- NOTE | 2017-05-18 11:59 | MP ---
cc: LEONEL GALVEZ D.D.S. DATE OF SURGERY 04/21/2017 PREOPERATIVE DIAGNOSIS Hematoma in right neck. POSTOPERATIVE DIAGNOSIS Hematoma in right neck. PROCEDURE PERFORMED Evacuation of hematoma and placement of two drains. SURGEON MD Hernan SPLICING TECHNICIAN Joel ANESTHESIA General anesthesia via oral tube. FLUIDS Crystalloids. SPECIMEN None. COMPLICATIONS None. JUSTIFICATION Mr. Galeano is a gentleman who is a patient of mine who had a face lift done earlier in the day which he tolerated well. He had two REJI drains placed on both sides. His postoperative course in the recovery bay was good. He got home, did fine for the first few hours, took a hydrocodone. According to his daughter, it made him antsy. He started pacing, he wanted to take his drains out. It caused him to have his pressure go up and then all of a sudden he felt some expansion and tightness in his neck which would appear to be an expanding hematoma. I told him to go to the emergency room. He presented to [facility] where I was called and there was expanding hematoma of the neck. I asked him to go ahead and release the incisions behind the right neck and evacuate until I could get there, take him to the OR which we posted for. PROCEDURE The patient was taken to the OR, intubated orally without difficulty. The tube was wide, the lower teeth at 22 cm. Released my incisions from both posterior ears and the anterior submental incision, evacuated a large hematoma, irrigated with saline, removed both the drains. The small arterial bleeder was found underneath the right periauricular region which appeared to be a small, probably spurting branch off the facial artery on the right side. Again irrigated well. Some fibrillar collagen was placed into the wound after all the hemostasis was maintained well. Two new REJI drains were placed, 10 flat out of the posterior neck areas. Irrigation. Satin matrix used for good hemostasis and closure was done, closing back the posterior auricular incisions with a 4-0 Vicryl deep, 6-0 Prolene and some zabrina in the hairline. The submental incision was closed with 4-0 Vicryl and a 6-0 Prolene. The patient was wrapped back up, remained intubated due to the swelling of the neck. We are going to plan to extubate him in the morning up in the [place]. He tolerated the procedure well. He was taken out of the OR with vital signs stable. We will plan extubated him up in [place] tomorrow. DISCHARGE SUMMARY The for the same the patient day of discharge was 04/22 PREOPERATIVE DIAGNOSIS Pain hematoma postop same procedure for and during the course of stay with evacuation of hematoma placement to drains the patient's postoperative course uneventful. He was extubated on 05/07 on 04/22 without any difficulty taking p.o. fluids well 14 without difficulty having a full liquid diet this point in time scrap no pain feeling good radial home. The patient already has off prescriptions RESULTS . PROCEDURE Mild stay before he INSTRUCTIONS As well as followup will be with me in the morning to take his dressing down checked both of his drains dilate continued to be soft diet 92 daughter and granddaughter went over proper weighted to evacuate changes REJI bulb drains to make sure there is any difficulty. The patient the phone number for a followup see the patient the morning for citation on the patient has no and brown acute OFELIA Garza/MELISSA /11:14 AM /11:30 AM
--- NOTE | 2017-05-18 12:15 | MD ---
cc: LEONEL GALVEZ D.D.S. ADMISSION DATE: 04/21/2017 DISCHARGE DATE: 04/22/2017 PREOPERATIVE DIAGNOSIS Expanding hematoma. POSTOPERATIVE DIAGNOSIS Expanding hematoma. PROCEDURE PERFORMED DURING COURSE OF STAY Evacuation of hematoma, placement of two drains. HOSPITAL COURSE The patient's postoperative course was uneventful. He was extubated around 9:30 on 04/22 without any difficulty, taking p.o. fluids well, voiding without difficulty, having a full liquid diet at this point in time. He described no pain, feeling good and ready to go home. DISCHARGE MEDICATIONS The patient already has all his prescriptions at home preprocedure in my office the day before. DISCHARGE INSTRUCTIONS He has instructions as well. FOLLOWUP His followup will be with me in the morning to take his dressing down and check both of his drains. DIET Continued to be a soft diet, non-chew. Daughter and granddaughter went over proper way to evacuate and change his REJI bulb drains. To make sure there is no difficulty, the patient was given my phone number for any followup and I will see the patient in the morning. OFELIA Garza/MELISSA /11:14 AM /11:53 AM .2
== END 2017-04-22 20:15 | disposition home or self-care (01) | DRG 919 ==
LOC: NEPD 20:54 → NEDA 21:33 → N03A 04-22 03:35
PROVIDERS: ADMIT Internal Medicine Critical Care Medicine; ATTEND Internal Medicine Critical Care Medicine
PROC: 0HC4XZZ Extirpation of Matter from Neck Skin, External Approach (ICD-10-PCS; principal; 2017-04-21 22:01)
DX: L76.31 Postprocedural hematoma of skin and subcutaneous tissue following a dermatologic procedure (principal); J95.821 Acute postprocedural respiratory failure; I71.2 Thoracic aortic aneurysm, without rupture; I48.2 Chronic atrial fibrillation; S10.93XA Contusion of unspecified part of neck, initial encounter; I10 Essential (primary) hypertension; Z79.01 Long term (current) use of anticoagulants; Z85.46 Personal history of malignant neoplasm of prostate; M19.90 Unspecified osteoarthritis, unspecified site; Z96.641 Presence of right artificial hip joint; H93.19 Tinnitus, unspecified ear; H91.90 Unspecified hearing loss, unspecified ear
CPT/HCPCS: 80053; 82948; 83735; 84100; 85025; 85610; 85730; 86850; 86900; 86901; 87641; 94002; 94003; C9132; J0690; J1100; J2250; J2270; J2370; J2930; J3010; J7030; J7120